=== PATIENT | male | born 1995 | race Caucasian/White ===

== ENCOUNTER 2018-11-02 11:22 | Emergency (ER) | payer MEDICAID ==
[2018-11-02] MEDS: LIDOCAINE 2% (MDV) 20 ML INJ INJ (11:52)
[2018-11-02] MEDS: DIPHTH/TET/ACEL PERTUSS (ADULT) 0.5 ML VIAL IM* (11:52)
== END 2018-11-02 14:03 | disposition home or self-care (01) ==
LOC: FTE 11:22
DX: S61.311A Laceration without foreign body of left index finger with damage to nail, initial encounter (principal); W29.3XXA Contact with powered garden and outdoor hand tools and machinery, initial encounter; Y92.9 Unspecified place or not applicable; Z23 Encounter for immunization
CPT/HCPCS: 12002; 73140; 90471; 90715; 99283-25

== ENCOUNTER 2018-11-07 18:54 | Emergency (ER) | payer MEDICAID | END 2018-11-07 19:41 | disposition home or self-care (01) | LOC: E/R 18:54 | DX: Z48.01 Encounter for change or removal of surgical wound dressing (principal); Z87.891 Personal history of nicotine dependence | CPT/HCPCS: 99283; Z7502 ==

== ENCOUNTER 2018-11-14 18:49 | Emergency (ER) | payer MEDICAID | END 2018-11-14 19:24 | disposition home or self-care (01) | LOC: E/R 19:24 | DX: Z48.02 Encounter for removal of sutures (principal) | CPT/HCPCS: 99281; Z7502 ==